=== PATIENT | male | born 1990 | race Caucasian/White ===

== ENCOUNTER 2021-03-06 20:52 | Emergency (ER) | payer SELFPAY ==
[~2021-03-06] VITALS: Ht 170.2 cm; Wt 96.4 kg
[2021-03-06] MEDS ORDERED: CEPHALEXIN MONOHYDRATE 500 MG CAPSULE PO ONE (22:45)
[2021-03-06 23:15] VITALS: BP 133/71
== END 2021-03-06 23:34 | disposition home or self-care (01) ==
LOC: EMS 20:52
DX: L03.116 Cellulitis of left lower limb (principal)
CPT/HCPCS: 99283

== ENCOUNTER 2023-11-29 16:56 | Emergency (ER) | payer MEDICAID, OTHER ==
[~2023-11-29] VITALS: Ht 170.2 cm; Wt 81.8 kg
[~2023-11-29 16:56] MED LIST: LEVO-72 PO; METR500 PO; OSEL75 PO
[2023-11-29] MEDS ORDERED: BICT1TAB PO (17:04)
[2023-11-29 17:32] LABS: APPEARANCE,URINE CLEAR (CLEAR); BILIRUBIN,URINE NEGATIVE (NEGATIVE); COLOR,URINE LIGHT YELLOW (YELLOW); GLUCOSE, URINE (UA) 70-100 mg/dL (NEGATIVE); KETONES,URINE NEGATIVE (NEGATIVE); LEUKOCYTE ESTERASE ,URINE NEGATIVE (NEGATIVE); NITRATE,URINE NEGATIVE (NEGATIVE); OCCULT BLOOD,URINE NEGATIVE (NEGATIVE); PH,URINE 8.5 (5.0-8.0); PROTEIN,URINE 100-200,SEE CONFIRM mg/dL (NEGATIVE); SPECIFIC GRAVITIY, URINE 1.028 (1.003-1.030); UROBILINOGEN,URINE <=1.0 mg/dL (<=1.0)
[2023-11-29 17:40] LABS: BASOPHILS % (AUTO) 0.1 % (0.0-2.0); EOSINOPHILS % (AUTO) 2.3 % (1.0-6.0); HEMATOCRIT 44.1 % (41-53); HEMOGLOBIN 14.8 g/dL (13.5-17.5); LYMPHOCYTES # (AUTO) 2.3 K/uL (1.0-4.8); LYMPHOCYTES % (AUTO) 36.4 % (22.0-44.0); MEAN CORPUSCULAR HEMOGLOBIN 29.7 pg (26.0-34.0); MEAN CORPUSCULAR HGB CONC 33.5 G/dL (31.0-37.0); MEAN CORPUSCULAR VOLUME 89 fL (80-100); MONOCYTES # (AUTO) 0.8 K/uL (0.1-1.0); NEUTROPHILS % (AUTO) 48.2 % (40.0-70.0); PLATELET COUNT (AUTO) 389 K/uL (150-450); RED BLOOD CELL COUNT(AUTO) 4.97 MIL/uL (4.50-5.90); RED CELL DISTRIBUTION WIDTH 12.9 % (11.5-14.5); WHITE BLOOD COUNT (AUTO) 6.3 K/uL (4.5-11.0)
[2023-11-29 17:52] LABS: ANION GAP 8 mmol/L (8-16); CALCIUM, TOTAL 9.3 mg/dL (8.8-10.5); CARBON DIOXIDE 30 mmol/L (22-29); CHLORIDE 102 mmol/L (98-107); CREATININE 0.92 mg/dL (0.60-1.30); GLOMERULAR FILTR. RATE CALC > 60 mL/min (>60); GLUCOSE,RANDOM 81 mg/dL (70-110); POTASSIUM 4.2 mmol/L (3.5-5.1); SODIUM SERUM 140 mmol/L (136-145); UREA NITROGEN, BLOOD 4 mg/dL (7-18)
[2023-11-29 17:53] LABS: SULFOSALICYLIC ACID,URINE Negative (Negative)
[2023-11-29 17:54] LABS: RBC,URINE None Seen /HPF (0-2)
[2023-11-29 17:55] LABS: BACTERIA,URINE None Seen /HPF (None Seen); WBC,URINE 0-2 /HPF (0-5)
[2023-11-29 17:58] LABS: ALANINE AMINOTRANSFERASE 34 U/L (12-78); ALKALINE PHOSPHATASE 48 U/L (46-116); ASPARTATE AMINOTRANSFERASE 17 U/L (15-37); BILIRUBIN,TOTAL 0.3 mg/dL (0.1-1.0); TOTAL PROTEIN, SERUM 7.6 g/dL (6.4-8.2)
[2023-11-29] MEDS: CefTRIAXone SODIUM 1 GM/VIAL IM ONE (18:09)
[2023-11-29] MEDS: LIDOCAINE/PF 1% 2 ML VIAL IM ONE (18:09)
[2023-11-29] MEDS: DOXYCYCLINE HYCLATE 100 MG TABLET PO ONE (18:09)
[2023-11-29] MEDS ORDERED: ONDA-104 PO (18:12)
[2023-11-29] MEDS ORDERED: EMTR1TAB53 PO (18:12)
[2023-11-29] MEDS ORDERED: RALT400T PO (18:12)
[2023-11-29] MEDS ORDERED: DOXY-354 PO (18:12)
[2023-11-29] MEDS: EMTRICITABINE/TENOFOVIR 200-300 MG TABLET PO ONE (19:08)
[2023-11-29] MEDS: RALTEGRAVIR 400 MG TABLET PO ONE (19:08)
[2023-11-29 19:10] VITALS: BP 135/79; PULSE 100; RESP 18; TEMP 98.3
[2023-12-02 07:06] LABS: HIV 1-2 SCREEN 4TH GEN W/RFLX Preliminary Reactive (Non Reactive); HIV INTERPRETATION HIV-1 Positive; HIV-1 ANTIBODY(MULTISPOT) Reactive (Non Reactive); HIV-2 ANTIBODY(MULTISPOT) Non Reactive (Non Reactive)
== END 2023-11-29 19:16 | disposition home or self-care (01) ==
LOC: EMS 16:58
DX: A64 Unspecified sexually transmitted disease (principal)
CPT/HCPCS: 99284; 86592; 80053; 81001; 85025; 36415; 87491; 87591; 96372; 87389; J0696; J3490; 81002